=== PATIENT | male | born 1940 | race Caucasian/White ===

== ENCOUNTER → 2017-04-30 | Outpatient (CLI) | payer MEDICARE ==
[~2017-04-30] MED LIST: ALLOPURINOL300 MG PO; ASPIRIN EC81 M1 PO; BRILINTA90 MG PO; CARDURA2 MG PO; CLOPIDOGREL75 MG PO; FLAX SEED OIL1 EACH PO; GLUCOSAMINE-CH1 EA15 PO; IRON1 TAB PO; LIPITOR80 MG PO; LOSARTAN-HCTZ1 EAC2 PO; MOMETASONE FUROATE; NITROGLYCERIN0.4 MG SL; OCUVITE OU; OCUVITE TABLET1 TA1 PO; OMEGA 3 FISH1 CAP.EC PO; PROTONIX PO; VITAMIN B650 M1 PO
--- NOTE | ~2017-04-30 | US37 ---
[facility] A Service of [facility] & [facility] RADIOLOGY TEXT RESULTS PATIENT: ELSI JACOB JR LOCATION: CNIV : 39 UNIT #: [id number] AGE: [address]: Garfield Cisneros MD SEX: M ORDER DR: [id number] [facility] [address] [place], [place] [address] [id number] O MR#: [id number] Acc #: [id number] NAME: ELSI JACOB : 1940 SEX: M STUDY DATE/TIME: 04/30/2017 13:57 UNIT: CNIV ROOM: STUDY DESCRIPTION: US Carotid W/Doppler Bilateral Attending Physician: Garfield Cisneros M.D. Referring Physician: Garfield Cisneros M.D. Ordering Physician: Garfield Cisneros M.D. Primary Care Physician: Chriss Stanford M.D. MEDICAL IMAGING REPORT This report is preliminary unless electronic signature is present EXAM Carotid duplex scan, 04/30/17 HISTORY Carotid bruits FINDINGS The right common carotid artery has a small amount of heterogeneous plaque. There is heterogeneous plaque in the right carotid bulb which extends up into the proximal internal and external carotid arteries. Peak systolic velocity in the mid right internal carotid artery is 78 cm/sec with an end diastolic velocity of 27 cm/sec. The ICA/CCA ratio on the right is 1.2. Peak systolic velocity in the right external carotid artery is 86 cm/sec. The right vertebral artery is patent with antegrade flow. The left common carotid artery has a small amount of heterogeneous plaque. There is heterogeneous plaque in the left carotid bulb which extends up in the proximal internal and external carotid arteries. Peak systolic velocity in the distal left internal carotid artery is 59 cm/sec with an end diastolic velocity of 25 cm/sec. The ICA/CCA ratio on the left is 0.5. Peak systolic velocity in the left external carotid artery is 90 cm/sec. The left vertebral artery is patent with antegrade flow. IMPRESSION Plaque, but no significant stenosis (less than 50%) in the internal and external carotid arteries bilaterally. Patent vertebral arteries bilaterally with antegrade flow. Dictated by... [facility] A Service of [facility] & [facility] RADIOLOGY TEXT RESULTS PATIENT: ELSI JACOB JR LOCATION: CNIV : 39 UNIT #: [id number] AGE: [address]: Garfield Cisneros MD SEX: M ORDER DR: Olayinka Mercedes M.D. THIS IS AN ELECTRONICALLY VERIFIED REPORT Olayinka Mercedes M.D. at 05/01/2017 7:41 AM KENNETH/manpreet TD: 05/01/2017 02:47 JOB #: [id number] MEDICAL IMAGING REPORT Page 1 of 1 COPY
== END | disposition home or self-care (01) ==
LOC: CNIV 13:31
DX: R09.89 Other specified symptoms and signs involving the circulatory and respiratory systems (principal); I65.23 Occlusion and stenosis of bilateral carotid arteries
CPT/HCPCS: 93880